=== PATIENT | female | born 1970 | race Hispanic/Latino ===

== ENCOUNTER 2018-01-04 12:45 | Observation (INO) | payer OTHER ==
[~2018-01-04] VITALS: Ht 157.5 cm; Wt 106.3 kg
[2018-01-04] MEDS ORDERED: PENICILLIN G BENZATHINE LA 1.2 MU TBX IM STA (13:58)
[2018-01-04] MEDS ORDERED: LIDOCAINE VISC 2% SOLN 15 ML UDC PO ONE (14:45)
[2018-01-04] MEDS ORDERED: SODIUM CHLORIDE FLUSH 10 ML SYR INJ PRN (15:45)
[2018-01-04 17:09] VITALS: BP 176/82
[2018-01-04] MEDS: BENZONATATE 100 MG CAP PO PRN (17:21)
[2018-01-04 17:31] VITALS: BP 176/82
[2018-01-04 17:37] VITALS: BP 176/82
[2018-01-04] MEDS: PIPER-TAZ 3.375 GM 50 ML IV SCH (18:20)
[2018-01-04 18:28] LABS: HEMATOCRIT 22.6 % (34.2-44.1)
[2018-01-04 18:29] LABS: HEMOGLOBIN 5.9 g/dL (12.0-16.0)
[2018-01-04] MEDS ORDERED: SODIUM CHLORIDE 0.9% 250ML 250 ML ONE (19:35)
[2018-01-04 20:00] VITALS: BP_SYST 162; BP_SYST 166; BP_DIAS 82; BP_DIAS 85
[2018-01-05] VITALS (7 sets, daily range): BP systolic 149–170; BP diastolic 64–82
[2018-01-05] MEDS ORDERED: ACETAMINOPHEN 325 MG TAB PO STA (00:26)
[2018-01-05] MEDS: PIPER-TAZ 3.375 GM 50 ML IV SCH ×4 (00:46→18:00)
[2018-01-05] MEDS: BENZONATATE 100 MG CAP PO PRN ×2 (01:00→22:53)
[2018-01-05 06:35] LABS: BASOPHILS # (AUTO) 0.1 (0.0-0.1); BASOPHILS % 0.4 % (0.0-1.0); EOSINOPHILS # (AUTO) 0.1 (0.0-0.4); EOSINOPHILS % 0.9 % (0.0-6.0); HEMATOCRIT 28.4 % (34.2-44.1); LYMPHOCYTES # (AUTO) 2.7 (1.0-3.2); LYMPHOCYTES % 23.1 % (18.0-39.1); MEAN CORPUSCULAR HEMOGLOBIN 19.4 pg (28-32); MEAN CORPUSCULAR HGB CONC 28.2 g/dL (31-35); MEAN CORPUSCULAR VOLUME 68.9 fL (81-99); MONOCYTES # (AUTO) 0.6 (0.2-0.8); MONOCYTES % 4.7 % (4.4-11.3); NEUTROPHILS # (AUTO) 8.2 (2.1-6.9); NEUTROPHILS % 70.4 % (38.7-80.0); PLATELET COUNT 237 x10e3/uL (140-360); RED BLOOD COUNT 4.12 x10e6/uL (3.6-5.1); RED CELL DISTRIBUTION WIDTH 25.1 % (11.7-14.4)
[2018-01-05 08:32] LABS: ANISOCYTOSIS SLIG; PLATELET ESTIMATE ADEQUATE; PLATELET MORPHOLOGY COMMENT NORMAL; RBC MORPHOLOGY COMMENT NORMAL
[2018-01-05 08:33] LABS: HYPOCHROMASIA SLIGHT; POIKILOCYTOSIS SLIG
[2018-01-05] MEDS ORDERED: SODIUM CHLORIDE 0.9% 250ML 250 ML IV ONE (11:45)
[2018-01-05 12:00] LABS: % IRON SATURATION 19 % (15-50); IRON 82 ug/dL (50-170); TOTAL IRON BINDING CAPACITY 437 ug/dL (261-478); TRANSFERRIN 312 mg/dL (180-382)
[2018-01-05] MEDS: LISINOPRIL 10 MG TAB PO SCH (12:25)
--- NOTE | 2018-01-05 13:24 | Diagnostic Imaging Report ---
PROCEDURE: Frontal and lateral views of the chest. COMPARISON: None. INDICATIONS: COUGH FINDINGS: Lines/tubes: None. Lungs: The lungs are well inflated and clear. There is no evidence of pneumonia or pulmonary edema. Pleura: There is no pleural effusion or pneumothorax. Heart and mediastinum: The heart and the mediastinum are normal. Bones: No acute bony abnormality. Mild degenerative changes of the spine. IMPRESSION: No acute cardiopulmonary disease. Dictated by: Eleno Saucedo M.D. on 01/05/2018 at 13:28 Electronically approved by: Eleno Saucedo M.D. on 01/05/2018 at 13:28
[2018-01-05] MEDS: ACETAMINOPHEN 325 MG TAB PO PRN ×2 (18:10→22:53)
[2018-01-06 00:40] VITALS: BP 168/88
[2018-01-06 00:45] VITALS: BP 168/88
[2018-01-06] MEDS: PIPER-TAZ 3.375 GM 50 ML IV SCH ×3 (00:50→11:30)
[2018-01-06 05:30] VITALS: BP 149/95
[2018-01-06 06:15] LABS: BASOPHILS # (AUTO) 0.1 (0.0-0.1); BASOPHILS % 0.6 % (0.0-1.0); EOSINOPHILS # (AUTO) 0.1 (0.0-0.4); EOSINOPHILS % 1.2 % (0.0-6.0); HEMATOCRIT 33.2 % (34.2-44.1); LYMPHOCYTES # (AUTO) 2.8 (1.0-3.2); MEAN CORPUSCULAR HEMOGLOBIN 20.7 pg (28-32); MEAN CORPUSCULAR HGB CONC 30.1 g/dL (31-35); MEAN CORPUSCULAR VOLUME 68.9 fL (81-99); MONOCYTES # (AUTO) 0.7 (0.2-0.8); MONOCYTES % 6.3 % (4.4-11.3); NEUTROPHILS # (AUTO) 7.4 (2.1-6.9); PLATELET COUNT 237 x10e3/uL (140-360); RED BLOOD COUNT 4.82 x10e6/uL (3.6-5.1)
[2018-01-06 06:41] LABS: ALANINE AMINOTRANSFERASE 52 IU/L (0-55); ALBUMIN 3.3 g/dL (3.5-5.0); ALBUMIN/GLOBULIN RATIO 0.9 (0.8-2.0); ALKALINE PHOSPHATASE 118 IU/L (40-150); ANION GAP 12.1 mmol/L (8-16); BLOOD UREA NITROGEN 8 mg/dL (7-26); BUN/CREATININE RATIO 12 (6-25); CARBON DIOXIDE 25 mmol/L (22-29); CHLORIDE 105 mmol/L (98-107); CREATININE, SERUM 0.65 mg/dL (0.57-1.11); EST GLOMERULAR FILTRATION RATE > 60 ML/MIN (60-); GLUCOSE 101 mg/dL (74-118); POTASSIUM 4.1 mmol/L (3.5-5.1); SODIUM 138 mmol/L (136-145)
[2018-01-06 07:27] VITALS: BP 158/88
[2018-01-06 07:42] LABS: EOSINOPHILS % (MANUAL) 1 % (0-7); LYMPHOCYTES % (MANUAL) 35 % (19-48); MONOCYTES % (MANUAL) 2 % (3.4-9.0); NEUTROPHILS % (MANUAL) 62 % (40-74)
[2018-01-06 07:43] LABS: ANISOCYTOSIS SLIGHT; HYPOCHROMASIA SLIGHT; PLATELET ESTIMATE ADEQUATE; PLATELET MORPHOLOGY COMMENT FEW GIANT; POIKILOCYTOSIS SLIGHT; RBC MORPHOLOGY COMMENT NORMAL
[2018-01-06] MEDS: LISINOPRIL 10 MG TAB PO SCH (08:25)
[2018-01-06 11:17] VITALS: BP 180/84
[2018-01-06] MEDS ORDERED: LISINOPRIL10 MG PO (12:11)
== END 2018-01-06 12:32 | disposition home or self-care (01) ==
LOC: FSED 12:45 → ERHOLD 16:15 → IMCU 16:53
DX: D50.9 Iron deficiency anemia, unspecified (principal); R05 Cough; J02.0 Streptococcal pharyngitis; I10 Essential (primary) hypertension; N92.0 Excessive and frequent menstruation with regular cycle
CPT/HCPCS: 36415 ×3; 36430; 71046 ×2; 80053 ×2; 82270; 82948; 83036; 83518; 83540; 83880; 84466; 85014; 85018; 85025 ×3; 85045; 86850; 86900; 86920; 93005 ×2; 96360; 99284; G0378 ×3; J0561; J2543 ×3; J7050 ×2; P9016 ×2

== ENCOUNTER 2019-01-25 18:34 | Emergency (ER) | payer OTHER ==
[~2019-01-25] VITALS: Ht 157.5 cm; Wt 99.8 kg
[~2019-01-25 18:34] MED LIST: LISINOPRIL10 MG PO
--- NOTE | 2019-01-25 19:40 | Diagnostic Imaging Report ---
Radiographs of the RIBS and chest HISTORY: Pain COMPARISON: None available. FINDINGS: Bones: No acute displaced fracture. Osseous alignment is within normal limits. Joints: The joint spaces are well-maintained. Soft tissues: The soft tissues appear unremarkable. IMPRESSION: No acute radiographic abnormality. No rib abnormality is seen. Signed by: Dr. Damaso Crawford M.D. on 01/25/2019 7:36 PM
[2019-01-25 22:46] VITALS: BP 158/97
== END 2019-01-25 23:15 | disposition home or self-care (01) ==
LOC: ER 18:34
DX: S20.211A Contusion of right front wall of thorax, initial encounter (principal); V43.52XA Car driver injured in collision with other type car in traffic accident, initial encounter; Y92.488 Other paved roadways as the place of occurrence of the external cause; I10 Essential (primary) hypertension; E78.5 Hyperlipidemia, unspecified
CPT/HCPCS: 71101; 99283

== ENCOUNTER 2019-02-03 04:05 | Emergency (ER) | payer OTHER ==
[~2019-02-03] VITALS: Ht 162.6 cm; Wt 111.1 kg
--- OUTSIDE RECORDS SUMMARY | 2019-02-03 04:08 | XMS REPORT ---
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 Allergies, Adverse Reactions, Alerts Allergy Name Allergy Type Status Severity Reaction(s) Onset Date Inactive Date Treating Clinician Comments No Known Drug Allergies DA Active U 2018-03-03 00:00:00 No Known Contrast Allergies DA Active U 2006-06-22 00:00:00 No Known Drug Allergies DA Active U 2006-06-22 00:00:00 No Known Food Allergies DA Active U 2006-06-22 00:00:00 No Known Other Allergies DA Active U 2006-06-22 00:00:00 Medications This patient has no known medications. Results Test Description Test Time Test Comments Text Results Atomic Results Result Comments ADAMARIS Etienne/CXR 2019-01-25 19:35:00 [place] [address] Patient Name: TRESA CARRASCO MR #: [id number] : 1970 Age/Sex: 49/F Req #: [id number] Adm Physician: Ordered by: HUNTER ENRIQUEZ MD, MD Report #: [id number] Location: ER Room/Bed: Procedure: [id number] DX/RIBS UNILAT W/CXR Exam Date: Exam Time: REPORT STATUS: Signed Radiographs of the RIBS and chest HISTORY: Pain COMPARISON: None available. FINDINGS: Bones: No acute displaced fracture. Osseous alignment is within normal limits. Joints: The joint spaces are well-maintained. Soft tissues: The soft tissues appear unremarkable. IMPRESSION: No acute radiographic abnormality. No rib abnormality is seen. Signed by: Dr. Luis Alberto Crawford M.D. on 01/25/2019 7:36 PM Dictated By: LUIS ALBERTO CRAWFORD MD, MD 35 Transcribed By: ANGELA on 01/25/191935 COPY TO: HUNTER ENRIQUEZ 2018-03-10 14:31:00 RUN DATE: 03/10/18 [facility] PAGE 1 RUN TIME: 1431 Specimen Inquiry RUN USER: INTERFACE PATIENT: TRESA CARRASCO LOC: [facility] U #: [id number] AGE/SX: 48/F ROOM: 2032 RE03/02/18REG DR: Tyler Bañuelos MD : [birth year] BED: A DIS: 03/06/18 STATUS: DIS IN TLOC: SPEC #: [id number] RECD: 03/07/18 STATUS: SOUNathan REQ #: [id number] KEIRY: 03/04/[address]: Tyler Bañuelos MD ENTERED: 03/07/18 SP TYPE: UTERUS OTHR DR: Jose Raul Blair MD ORDERED: GROSS COPIES TO: Tyler Bañuelos MD [address] [place] [address] Jose Raul Blair MD [address] [place] [address] MARKERS: ABNORMAL TISSUE, UTERUS PROCEDURES: GROSS (03/10/18-4827) TISSUES: 1. UTERUS, NOS - CERVIX, FALLOPIAN TUBES 2. LEFT OVARY - WITH CYST 3. RIGHT OVARY CLINICAL HISTORY COLLECTION DATE: 03/04/18 ABNORMAL HEAVY VAGINAL BLEEDING FINAL DIAGNOSIS Uterus with right fallopian tube, hysterectomy and right salpingectomy: CERVIX, CHRONIC CERVICITIS AND NABO THIAN CYSTS ENDOMETRIUM, COMPATIBLE WITH PROLIFERATIVE PATTERN WITH AUTOLYTIC CHANGE NEGATIVE FOR ENDOMETRIAL HYPERPLASIA MYOMETRIUM, MULTIPLE INTRAMURAL LEIOMYOMAS SEROSA, NO PATHOLOGIC ALTERATION RIGHT FALLOPIAN TUBE, FIMBRIATED AND TRANSECTED FALLOPIAN TUBE WITH BENIGN PARATUBAL CYSTS PROXIMAL SEGMENTS OF BILATERAL FALLOPIAN TUBES WITH NO PATHOLOGIC ALTERATION NEGATIVE FOR MALIGNANCY Left ovary with cyst, salpingo-oophorectomy: CONTINUED ON NEXT PAGE RUN DATE: 03/10/18 [facility] PAGE 2 RUN TIME: 1431 Specimen Inquiry RUN USER: INTERFACE -SPEC #: [id number] PATIENT: TRESA CARRASCO #[id number] (Continued) FINAL DIAGNOSIS (Continued) OVARIAN PARENCHYMA WITH BENIGN UNILOCULAR CYST COMPATIBLE WITH SEROUS CYSTADENOMA FIMBRIATED AND TRANSECTED FALLOPIAN TUBE WITH NO PATHOLOGIC ALTERATION NEGATIVE FOR MALIGNANCY Right ovary, oophorectomy: OVARIAN PARENCHYMA, WITH UNREMARKABLE PHYSIOLOGIC FOLLICLES AND BENIGN SURFACE EPITHELIAL INCLUSIONS NEGATIVE FOR MALIGNANCY RRB/sm A [phone] MACROSCOPIC Specimen (1) is received in formalin labeled with the patient's name, "uterus, cervix" and consists of an enlarged slightly irregularly shaped uterine fundus with separate cervix and separate segment of fimbriated fallopian tube. The uterine body measures 10.5 cm from the top of the fundus to the point of cervical amputation, 11.0 cm from right to left and up to 2.2 cm in A/P diameter. The uterine body weighs 442.7 grams. The cervix measures 7.0 cm in length with a transverse diameter up to 1.0 cm and weighs 62.2 grams. The segment of fimbriated fallopian tube measures 4 cm in length with diameter up to 0.6 cm. A few transparent paratubal cysts are present ranging from 0.2 up to 0.6 cm in diameter. A second fragment of rubbery zapata-cantrell tissue is present measuring 3.0 X 2.0 X 1.0 cm. The endocervical mucosa is light cantrell and smooth. The cervical os appears parous. Nabothian cysts are present within the endocervical canal. No other focal lesions are seen. The serosal surface is smooth and cantrell-zapata. It is not possible to definitively orient the uterine body. The anterior and posterior surfaces of the uterus cannot be clearly identified. The specimen is bivalved and allowed to fix prior to taking additional sections. After fixation in formalin the uterus is serially sectioned. Three nodules are identified within the myometrium measuring 1.6, 3.6, and 3.0 cm in greatest diameter. There is focal hemorrhage within the nodules. No necrosis is identified. There are two attached proximal segments of fallopian tube on the uterus. One segment measures 1.0 cm in length by 0.5 cm in diameter. The opposite segment of fallopian tube measures 2.5 cm in length 0.5 cm in diameter. The endometrial lining is cantrell-pink and measures 0.5 cm in thickness. The myometrium measures up to 3.5 cm away from the nodules. No other discrete lesions are identified. Section code: 1A-1B, cervix; 1C, sections of fimbriated fallopian tube with paratubal cyst; 1D, section of separate portion of tissue; 1E, endomyometrium CONTINUED ON NEXT PAGE RUN DATE: 03/10/18 [facility] P AGE 3 RUN TIME: 1431 Specimen Inquiry RUN USER: INTERFACE SPEC #: [id number] PATIENT: TRESA CARRASCO #[id number] (Continued) MACROSCOPIC (Continued) and serosa; 1F, opposite endomyometrium; 1G, smallest nodule; 1H, second largest nodule; 1I, largest nodule; 1J, attached fallopian tube; 1K, other attached fallopian tube. Specimen (2) is received in formalin labeled with the patient's name, "left ovary and cyst" and consists of a zapata- cantrell semitransparent cystic structure measuring 9.0 X 7.0 by up to 5.0 cm with attached segment of fimbriated red-cantrell fallopian tube measuring 4.0 cm in length with diameter up to 0.6 cm. The specimen weighs 159.6 grams. The surface of the cystic structure is smooth and glistening with congested vessels. Near the hilar area the tissue is cantrell-light pink and more firm resembling residual ovarian parenchyma. The cyst contains watery pale yellow fluid. The inner lining of the cyst is smooth with no solid areas or papillations. The ovarian parenchyma measures up to 1.2 cm in thickness. Sectioning through the ovarian parenchyma shows a few small cystic spaces measuring up to 0.5 cm in diameter. No focal lesions are seen within the fallopian tube. Section code: 2A, section through residual ovarian parenchyma with cyst lining one surface and additional sections of cyst wall; 2B, sections of fallopian tube, one piece with adjacent ovarian cyst. Specimen (3) is received in formalin labeled with the patient's name, "right ovary" and consists of a slightly flattened zapata-cantrell ovary measuring 4.5 X 3.0 by up to 1.2 cm. No identifiable fallopian tube is attached to the ovary. The surface of the ovary is smooth and slightly nodular in appearance. Sectioning through the tissue shows a few scattered unremarkable appearing cystic spaces measuring up to 0.5 cm in diameter. No other focal lesions are seen. Cable Tender tissue is submitted as (3). GROSS PERFORMED AT [facility] [address] [place] [address] (P)[phone] MICROSCOPIC MICROSCOPIC PERFORMED AT [facility] All of the stains, including any controls performed, stain appropriately. [facility] [address] [facility], [place] [address] (P)[phone] CONTINUED ON NEXT PAGE RUN DATE: 03/10/18 [facility] PAGE 4 RUN TIME: 1431 Specimen Inquiry RUN USER: INTERFACE SPEC #: [id number] PATIENT: TRESA CARRASCO #[id number] (Continued) PERFORMING SITE Diagnosis performed at: [facility], [place] [place] [address] Signed SIGNATURE ON FILE Wally Jett 03/10/18 1431 END OF REPORT CHEST 2 VIEWS 2018-01-05 13:28:00 [place] [address] Patient Name: TRESA CARRASCO MR #: [id number] : 1970 Age/Sex: 48/F Req #: [id number] Adm Physician: BARRY HECTOR MD Ordered by: BARRY HECTOR MD Report #: [id number] Location: [facility] Room/Bed: [place] [address] Procedure: [id number] DX/CHEST 2 VIEWS Exam Date: 01/05/18 Exam Time: 1300 REPORT STATUS: Signed PROCEDURE: Frontal and lateral views of the chest. COMPARISON: None. INDICATIONS: COUGH FINDINGS: Lines/tubes: None. Lungs: The lungs are well inflated and clear. There is no evidence of pneumonia or pulmonary edema. Pleura: There is no pleural effusion or pneumothorax. Heart and mediastinum: The heart and the mediastinum are normal. Bones: No acute bony abnormality. Mild degenerative changes of the spine. IMPRESSION: No acute cardiopulmonary disease. Dictated by: Eleno Mobley M.D. on 01/05/2018 at 13:28 Electronically approved by: Eleno Mobley M.D. on 01/05/2018 at 13:28 Dictated By: ELENO MOBLEY MD 1328 Transcribed By: JAROCHO on 01/05/18 1328 COPY TO: BARRY HECTOR MD
--- OUTSIDE RECORDS SUMMARY | 2019-02-03 04:08 | XMS REPORT ---
Author Author Admin, [place] Organization [facility] Address Unknown Phone Unavailable Allergies, Adverse Reactions, Alerts Allergy Name Reaction Description Start Date Severity Status Provider No Known Allergies Tanya Banda DISPATCH CLERK Conditions or Problems Problem Name Problem Code Onset Date Status Entry Date Provider Comment Standard Description Annotate Abnormal uterine bleeding 626.9 Active Eveline Mohamud MD Unspecified disorders of menstruation and other abnormal bleeding from female genital tract Fatigue 780.79 Active Eveline Mohamud MD Other malaise and fatigue High cholesterol 272.0 Active Eveline Mohamud MD Pure hypercholesterolemia Hypertension 401.9 Active Eveline Mohamud MD Unspecified essential hypertension Medication List Medication Instructions Start Date Stop Date Generic Name NDC Status Provider Patient Instruction [facility] IRON 325 (65 FE) MG ORAL TABLET 1 By Mouth BID FERROUS SULFATE [id number] Active Eveline Mohamud MD Active Vital Signs Date Name Value Unit Range Description blood pressure, diastolic 96 mm[Hg] BP nguyễn blood pressure, systolic 168 mm[Hg] BP sys height E&M 61 [in_us] Bdy height pulse rate E&M 88 /min Heart rate respiratory rate E&M 18 /min Resp rate temperature E&M 98.3 [degF] Body temperature weight E&M 227 [lb_av] Weight Measured Diagnostic Results Date Name Value Unit Range Description Lab Report: CBC With Differential/Platelet, TSH Rfx on Abnormal to Free T4 - Hematology monocytes as percent of blood leukocytes 4 % Not Estab. basophils as percent of blood leukocytes 1 % Not Estab. lymphocyte count, blood, automated 3.5 X10E3/UL 10*3/mm3 0.7-3.1 monocyte count, blood, automated 0.4 X10E3/UL 10*3/uL 0.1-0.9 mean corpuscular volume, RBC 76 fL 79-97 mean corpuscular hemoglobin, RBC 21.5 pg 26.6-33.0 lymphocytes as percent of blood leukocytes 33 % Not Estab. erythrocyte (RBC) count 5.11 X10E6/UL 10*6/mm3 3.77-5.28 mean corpuscular hemoglobin concentration, RBC 28.2 G/DL % 31.5-35.7 hemoglobin, blood 11.0 g/dL 11.1-15.9 neutrophils as percent of blood leukocytes 62 % Not Estab. platelet count 355 X10E3/UL 10*3/mm3 339-578 5394/07/20 leukocyte count, blood 10.6 X10E3/UL 10*3/mm3 3.4-10.8 hematocrit, blood 39.0 % 34.0-46.6 eosinophils as percent of blood leukocytes 0 % Not Estab. Lab Report: CBC With Differential/Platelet, TSH Rfx on Abnormal to Free T4 - Chemistry Absolute Neutrophils 6.6 X10E3/UL 10*3/uL 1.4-7.0 Lab Report: CBC With Differential/Platelet, TSH Rfx on Abnormal to Free T4 - Hematology basophil count, absolute 0.1 x10E3/uL 0.0-0.2 Lab Report: CBC With Differential/Platelet, TSH Rfx on Abnormal to Free T4 - Chemistry thyroid stimulating hormone, serum 2.670 u[iU]/mL 0.450-4.500 Lab Report: CBC With Differential/Platelet, TSH Rfx on Abnormal to Free T4 - Hematology Eosinophil Absolute Count 0.0 X10E3/UL 10*3/uL 0.0-0.4 Encounters Date Encounter Provider Code Facility 08:37:44 CDT New Patient Problem Focus - 01989 Eveline Mohamud MD CPT-[id number] [facility]
[2019-02-03] MEDS ORDERED: CLONIDINE HCL 0.1 MG TAB ONE (04:26)
[2019-02-03] MEDS ORDERED: CLONIDINE HCL 0.3 MG TAB PO ONE (04:30)
== END 2019-02-03 06:46 | disposition home or self-care (01) ==
LOC: FSED 04:05
DX: I16.0 Hypertensive urgency (principal)
CPT/HCPCS: 99282

== ENCOUNTER 2024-09-01 14:12 | Emergency (ER) | payer OTHER ==
[~2024-09-01] VITALS: Ht 157.5 cm; Wt 91.4 kg
[2024-09-01 14:20] VITALS: PULSE 96; RESP 20; TEMP 97.5
[2024-09-01] MEDS ORDERED: LOSARTAN POTASS25 MG PO (14:38)
[2024-09-01] MEDS ORDERED: CRESTOR40 MG (14:38)
[2024-09-01] MEDS ORDERED: OZEMPIC0.25 MG/02 (14:38)
[2024-09-01] MEDS ORDERED: NEURONTIN300 MG PO (14:38)
[2024-09-01] MEDS ORDERED: METFORMIN HCL500 MG PO (14:38)
[2024-09-01] MEDS ORDERED: IBUPROFEN600 MG PO (15:04)
[2024-09-01 15:30] VITALS: BP 163/90; PULSE 91; RESP 16; TEMP 97.4; O2SAT 96
== END 2024-09-01 15:29 | disposition home or self-care (01) ==
LOC: FSED 14:19
DX: G57.21 Lesion of femoral nerve, right lower limb (principal); I10 Essential (primary) hypertension; E11.9 Type 2 diabetes mellitus without complications; E78.5 Hyperlipidemia, unspecified
CPT/HCPCS: 99284